=== PATIENT | male | born 1985 | race Caucasian/White ===

== ENCOUNTER 2017-05-21 09:53 | Emergency (ER) | payer OTHER ==
[2017-05-21 10:01] VITALS: BP 117/71
--- NOTE | 2017-05-21 10:56 | XRAY Preliminary Report ---
Exam: XR Toe(s) RT IMPRESSION: 1. No acute osseous abnormalities. [facility] SITE ID: [id number]
--- NOTE | 2017-05-21 10:59 | XRAY Report ---
EXAM: RIGHT TOE RADIOGRAPHY EXAM DATE: 05/21/2017 10:40 AM. CLINICAL HISTORY: Dumbbell dropped on right great toe, foot. Pain. COMPARISON: None. TECHNIQUE: 3 views. FINDINGS: Bones: Normal. No fracture or bone lesion. Joints: Normal. No subluxations. Soft Tissues: Soft tissue swelling. No radiopaque foreign bodies. IMPRESSION: 1. No acute osseous abnormalities. [facility] Referring Provider Line: [phone] SITE ID: [id number]
[2017-05-21] MEDS ORDERED: IBUPROFEN 400 MG TABLET PO STA (11:20)
[2017-05-21] MEDS ORDERED: ACETAMINOPHEN 325 MG TABLET PO STA (11:20)
--- NOTE | 2017-05-21 11:20 | ED Physician Documentation ---
History of Present Illness - Stated complaint Stated Complaint: FOOT INJ - Chief complaint Chief Complaint: Ext Problem - Additonal information Additional information: hx from pt 31 male AD [place] a 335 lb weight fell in his great toe last night pain and bruising Review of Systems Musculoskeletal: reports: Pain with weight bearing PD PAST MEDICAL HISTORY - Past Medical History Respiratory: None Neuro: None Endocrine/Autoimmune: None GI: None - Past Surgical History Past Surgical History: No - Present Medications Home Medications: Ambulatory Orders Medication Instructions Recorded Confirmed No Known Home Medications [No 05/21/17 05/21/17 Known Home Medications] - Allergies Allergies/Adverse Reactions: Allergies Allergy/AdvReac Type Severity Reaction Status Date / Time No Known Drug Allergies Allergy Verified 02/12/15 12:01 - Social History Does the pt smoke?: No Smoking Status: Never smoker Does the pt drink ETOH?: Yes Does the pt have substance abuse?: No - Immunizations Immunizations are current?: Yes PD ED PE NORMAL - Vitals Vital signs reviewed: Yes - Extremities Extremities: Other (great toe brusied and TTP MTP prox phal and IP, MSV intact, no lac no deformity) Results - Vitals Vitals: Vital Signs - 24 hr 05/21/17 09:59 Temperature 36.1 C L Heart Rate 61 Respiratory 16 Rate Blood Pressure 117/71 O2 Saturation 98 Oxygen O2 Source Room air - Rads (name of study) toes Radiology: See rad report (neg) Departure - Departure Disposition: 01 Home, Self Care Clinical Impression: Injury, crush, toe Qualifiers: Encounter type: initial encounter Laterality: right Qualified Code(s): S97.101A - Crushing injury of unspecified right toe(s), initial encounter Condition: Good Instructions: ED Crush Injury Toe No Fx Follow-Up: [facility] [Provider Group] Comments: The xray was fine - no fracture seen. I recommend ice and elevation to keep the swelling down, motrin and tylenol for pain, and either use the crutches to relieve stress on the toe of wear a stiff soled shoe so the toe does not bend Follow up at [place] if not better in 2 weeks Forms: Activity restrictions
[2017-05-21] MEDS ORDERED: IBUPROFEN 400 MG TABLET PO ONE (11:22)
[2017-05-21] MEDS ORDERED: ACETAMINOPHEN 325 MG TABLET PO ONE (11:23)
== END 2017-05-21 11:43 | disposition home or self-care (01) ==
LOC: ED 09:53
DX: S97.101A Crushing injury of unspecified right toe(s), initial encounter (principal); W22.8XXA Striking against or struck by other objects, initial encounter
CPT/HCPCS: 73660; 99282; 99283; A9270